=== PATIENT | male | born 1945 | race Caucasian/White ===

== ENCOUNTER 2017-02-21 22:08 | Emergency (ER) | payer MEDICARE ==
[~2017-02-21] VITALS: Ht 160 cm; Wt 49.6 kg
[2017-02-21 22:38] LABS: HEMOGLOBIN 11.8 gm/dl (14.0-17.5); RED BLOOD COUNT 3.46 M/UL (4.20-5.50); WHITE BLOOD COUNT 18.3 K/UL (4.5-11.0)
[2017-02-21 22:56] LABS: BUN/CREATININE RATIO 23 (0-10)
[2017-02-22 06:28] LABS: HEMOGLOBIN 10.6 gm/dl (14.0-17.5); RED BLOOD COUNT 3.16 M/UL (4.20-5.50); WHITE BLOOD COUNT 16.2 K/UL (4.5-11.0)
[2017-02-22 06:59] LABS: BUN/CREATININE RATIO 22 (0-10)
[2017-02-22] MEDS ORDERED: LORTAB 7.5-3251 EACH PO (11:41)
[2017-02-22] MEDS ORDERED: DICLOFENAC POTA50 MG PO (11:42)
[2017-02-22] MEDS ORDERED: MEDROL DOSEPAK 24 MG PO (11:43)
[2017-02-22] MEDS ORDERED: ZANTAC 150 MG150 MG PO (11:44)
[2017-02-22] MEDS ORDERED: TYLENOL W/CODEIN1 E1 PO (11:44)
[2017-02-22] MEDS ORDERED: SINGULAIR10 MG PO (11:45)
[2017-02-22] MEDS ORDERED: ALL DAY ALLERGY10 MG PO (11:45)
[2017-02-22] MEDS ORDERED: VENTOLIN HFA 66.7 GM INH (11:47)
[2017-02-22] MEDS ORDERED: PREDNISONE20 MG PO (11:48)
[2017-02-23 07:14] LABS: HEMOGLOBIN 8.9 gm/dl (14.0-17.5)
[2017-02-23 07:25] LABS: RED BLOOD COUNT 2.6 M/UL (4.20-5.50); WHITE BLOOD COUNT 11.2 K/UL (4.5-11.0)
[2017-02-23 07:38] LABS: BUN/CREATININE RATIO 23 (0-10)
[2017-02-24 06:10] LABS: HEMOGLOBIN 9.3 gm/dl (14.0-17.5); RED BLOOD COUNT 2.8 M/UL (4.20-5.50)
[2017-02-24 06:11] LABS: WHITE BLOOD COUNT 6.3 K/UL (4.5-11.0)
[2017-02-24] MEDS ORDERED: PROTONIX 40 MG40 M1 PO (14:22)
[2017-02-24] MEDS ORDERED: THERAGRAN TAB1 EA PO (14:23)
[2017-02-24] MEDS ORDERED: CARAFATE1 GM PO (14:25)
== END 2017-02-24 15:18 | disposition home or self-care (01) ==
LOC: ER1 22:08 → ZEROF 02-22 03:32 → M/S 02-22 03:32
PROVIDERS: Internal Medicine Gastroenterology; Physician Assistant; Physician Assistant Medical; Student in an Organized Health Care Education/Training Program; ADMIT Hospitalist
PROC: 0DB78ZX Excision of Stomach, Pylorus, Via Natural or Artificial Opening Endoscopic, Diagnostic (ICD-10-PCS; principal; 2017-02-23 08:00)
DX: K22.11 Ulcer of esophagus with bleeding (principal); D72.829 Elevated white blood cell count, unspecified; D50.0 Iron deficiency anemia secondary to blood loss (chronic); I45.81 Long QT syndrome; E87.6 Hypokalemia; E87.1 Hypo-osmolality and hyponatremia; F10.20 Alcohol dependence, uncomplicated; J44.9 Chronic obstructive pulmonary disease, unspecified; F17.210 Nicotine dependence, cigarettes, uncomplicated; Z79.891 Long term (current) use of opiate analgesic; Z79.52 Long term (current) use of systemic steroids; Z79.899 Other long term (current) drug therapy
CPT/HCPCS: 36415; 71010; 71260; 80048; 80053; 81001; 82150; 82272; 82550; 82553; 82607; 82728; 82746; 83540; 83550; 83605; 83690; 83735; 83874; 84132; 84484; 85025; 85027; 93005; 96361; 96374; 96375; 96376; 99285; C9113; G0378; J2250; J2405; J3010; J7030; J7040; J7050; Q9963